=== PATIENT | male | born 1970 | race Caucasian/White ===

== ENCOUNTER 2018-01-25 10:14 | Emergency (ER) | payer SELFPAY ==
[2018-01-25] MEDS ORDERED: HYDROCODONE/APAP 10/325 TAB ONE (11:20)
[2018-01-25] MEDS ORDERED: METHYLPREDNISOLONE 125 MG INJ ONE (11:20)
[2018-01-25] MEDS ORDERED: METHOCARBAMOL 500 MG TAB ONE (11:21)
--- NOTE | 2018-01-25 11:25 | EDPHYS ---
Physician Documentation [facility] Name: Amilcar Perdomo Age: 47 yrs Sex: Male : 1970 Arrival Date: 01/25/2018 Time: 10:20 Bed 12 Private MD: ED Physician Noé More HPI: 01/25 11:18 This 47 yrs old Male presents to ER via Ambulatory with complaints of Back kdr Pain. 11:18 The patient presents with pain that is chronic. The symptoms are located in the low kdr back. Onset: The symptoms/episode began/occurred gradually, 3 day(s) ago. The pain radiates to the right leg. Associated signs and symptoms: The patient has no apparent associated signs or symptoms. 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 Modifying factors: The patient symptoms are alleviated by remaining still, specific position, lying down, the patient symptoms are aggravated by any movement, bending, standing. Severity of symptoms: At their worst the symptoms were moderate, in the emergency department the symptoms are unchanged. The patient has experienced similar episodes in the past, chronically, Just usually not this bad. Has been taking OTC meds without relief. Historical: - Allergies: 10:24 No Known Allergies; hj - Home Meds: 10:24 None [Active]; hj - PMHx: 10:24 None; hj - PSHx: 10:24 Knee surgery; hj - Immunization history:: Adult Immunizations up to date. - Social history:: Smoking status: Patient uses tobacco products, Patient/guardian denies using alcohol. 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 Eyes: Negative for injury, pain, redness, and discharge, ENT: Negative for injury, pain, and discharge, Neck: Negative for injury, pain, and swelling, Cardiovascular: Negative for chest pain, palpitations, and edema, Respiratory: Negative for shortness of breath, cough, wheezing, and pleuritic chest pain, Abdomen/GI: Negative for abdominal pain, nausea, vomiting, diarrhea, and constipation, : Negative for injury, bleeding, discharge, and swelling, MS/Extremity: Negative for injury and deformity, Skin: Negative for injury, rash, and discoloration, Neuro: Negative for headache, weakness, numbness, tingling, and seizure activity. Psych: Negative for depression, anxiety, suicide ideation, homicidal ideation, and hallucinations, Allergy/Immunology: Negative for hives, rash, and allergies, Endocrine: Negative for neck swelling, polydipsia, polyuria, polyphagia, and marked weight changes, Hematologic/Lymphatic: Negative for swollen nodes, abnormal bleeding, and unusual bruising. 11:18 Respiratory: Negative for shortness of breath, cough, wheezing, and pleuritic chest pain. 11:18 Respiratory: 11:18 Back: Positive for decreased range of motion, pain at rest, pain with movement, radiated pain, Negative for injury or acute deformity. Exam: 11:18 Constitutional: This is a well developed, well nourished patient who is awake, alert, kdr and in no acute distress. Head/Face: Normocephalic, atraumatic. Eyes: Pupils equal round and reactive to light, extra-ocular motions intact. Lids and lashes normal. Conjunctiva and sclera are non-icteric and not injected. Cornea within normal limits. Periorbital areas with no swelling, redness, or edema. Neck: Trachea midline, no thyromegaly or masses palpated, and no cervical lymphadenopathy. Supple, full range of motion without nuchal rigidity, or vertebral point tenderness. No Meningismus. Chest/axilla: Normal chest wall appearance and motion. Nontender with no deformity. No lesions are appreciated. Cardiovascular: Regular rate and rhythm with a normal S1 and S2. No gallops, murmurs, or rubs. Normal PMI, no JVD. No pulse deficits. Respiratory: Lungs have equal breath sounds bilaterally, clear to auscultation and percussion. No rales, rhonchi or wheezes noted. No increased work of breathing, no retractions or nasal flaring. Abdomen/GI: Soft, non-tender, with normal bowel sounds. No distension or tympany. No guarding or rebound. No evidence of tenderness throughout. Male : No urologic s/s Skin: Warm, dry with normal turgor. Normal color with no rashes, no lesions, and no evidence of cellulitis. MS/ Extremity: Pulses equal, no cyanosis. Neurovascular intact. Full, normal range of motion. Neuro: Awake and alert, GCS 15, oriented to person, place, time, and situation. Cranial nerves II-XII grossly intact. Motor strength 5/5 in all extremities. Sensory grossly intact. Cerebellar exam normal. Normal gait. Psych: Awake, alert, with orientation to person, place and time. Behavior, mood, and affect are within normal limits. Vital Signs: 10:25 BP 133 / 109; Pulse 104; Resp 18; Temp 98.1(O); Pulse Ox 100% on R/A; Weight 86.18 kg; hj Height 6 ft. 2 in. (187.96 cm); Pain 10/10; 10:25 Body Mass Index 24.39 (86.18 kg, 187.96 cm) hj MDM: 10:29 Patient medically screened. kdr 11:18 Data reviewed: vital signs, nurses notes. Counseling: I had a detailed discussion with kdr the patient and/or guardian regarding: the historical points, exam findings, and any diagnostic results supporting the discharge/admit diagnosis, the need for outpatient follow up. Administered Medications: 11:08 Drug: Weldon 10 mg-325 mg 1 tabs Route: PO; iw 11:35 Follow up: Response: No adverse reaction iw 11:08 Drug: Robaxin 750 mg Route: PO; iw 11:30 Follow up: Response: No adverse reaction iw 11:08 Drug: SOLU-Medrol 125 mg Route: IM; Site: right deltoid; iw 11:40 Follow up: Response: No adverse reaction; Pain is decreased iw Disposition: 01/25/18 11:24 Discharged to Home. Impression: Low back pain. - Condition is Stable. - Discharge Instructions: Musculoskeletal Pain, Back Pain, Adult, [id number]. - Prescriptions for ketorolac 10 mg Oral tablet - take 1 tablet by ORAL route every 4-6 hours As needed not to exceed 40 mg in 24hrs; 16 tablet. Robaxin 500 mg Oral Tablet - take 2 tablet by ORAL route every 6 hours As needed; 40 tablet. Tramadol 50 mg Oral Tablet - take 1 tablet by ORAL route every 8 hours as needed; 12 tablet. - Medication Reconciliation Form, Thank You Letter, Antibiotic Education, Prescription Opioid Use, Work release form form. - Follow up: Private Physician; When: 2 - 3 days; Reason: If symptoms return, Further diagnostic work-up, Recheck today's complaints, Continuance of care, Re-evaluation by your physician. - Problem is an acute exacerbation. - Symptoms have improved. Signatures: Noé More MD MD kdr Moriah Boogie RN RN iw Oscar Broussard RN RN hj
--- NOTE | 2018-01-25 11:25 | ER ---
Nurse's Notes [facility] Name: Amilcar Perdomo Age: 47 yrs Sex: Male : 1970 Arrival Date: 01/25/2018 Time: 10:20 Bed 12 Private MD: Diagnosis: Low back pain Presentation: 01/25 10:22 Presenting complaint: Patient states: i hurt my back last Tuesday, been taking advil hj every 6 hours not helping; hx of back pain; reports tingling numbness on the R leg; stabbing pain on lower back;. Transition of care: patient was not received from another setting of care. Onset of symptoms was January 25, 2018. Care prior to arrival: None. 10:22 Method Of Arrival: Ambulatory hj 10:22 Acuity: ZUHAIR 4 hj Triage Assessment: 10:24 General: Appears in no apparent distress. uncomfortable, Behavior is calm, cooperative, hj appropriate for age. Pain: Complains of pain in left low back and right low back. Musculoskeletal: Circulation, motion, and sensation intact. Range of motion:. Historical: - Allergies: 10:24 No Known Allergies; hj - Home Meds: 10:24 None [Active]; hj - PMHx: 10:24 None; hj - PSHx: 10:24 Knee surgery; hj - Immunization history:: Adult Immunizations up to date. - Social history:: Smoking status: Patient uses tobacco products, Patient/guardian denies using alcohol. Screenin:32 Abuse screen: Denies threats or abuse. Denies injuries from another. Nutritional hj screening: No deficits noted. Tuberculosis screening: No symptoms or risk factors identified. Fall Risk None identified. Assessment: 10:31 General: Appears in no apparent distress. uncomfortable, Behavior is calm, cooperative, hj appropriate for age. Pain: Complains of pain in right low back and left low back. Neuro: Level of Consciousness is awake, alert, obeys commands, Oriented to person, place, time, situation. Cardiovascular: Capillary refill < 3 seconds Patient's skin is warm and dry. Respiratory: Airway is patent Respiratory effort is even, unlabored, Respiratory pattern is regular, symmetrical. GI: No signs and/or symptoms were reported involving the gastrointestinal system. : No signs and/or symptoms were reported regarding the genitourinary system. EENT: No signs and/or symptoms were reported regarding the EENT system. Derm: No signs and/or symptoms reported regarding the dermatologic system. Musculoskeletal: Reports pain in right low back and left low back numbness, tingling on R leg;. 11:19 Reassessment: Patient appears in no apparent distress at this time. Patient and/or iw family updated on plan of care and expected duration. Pain level reassessed. Patient is alert, oriented x 3, equal unlabored respirations, skin warm/dry/pink. pt has been medicated for pain. Vital Signs: 10:25 BP 133 / 109; Pulse 104; Resp 18; Temp 98.1(O); Pulse Ox 100% on R/A; Weight 86.18 kg; hj Height 6 ft. 2 in. (187.96 cm); Pain 10/10; 10:25 Body Mass Index 24.39 (86.18 kg, 187.96 cm) ED Course: 10:20 Patient arrived in ED. mr 10:24 Triage completed. hj 10:24 Arm band placed on left wrist. hj 10:28 Moriah Boogie, RN is Primary Nurse. iw 10:28 Noé More MD is Attending Physician. kdr 10:32 Patient has correct armband on for positive identification. Bed in low position. Call hj light in reach. Adult w/ patient. 11:45 No provider procedures requiring assistance completed. Patient did not have IV access iw during this emergency room visit. Administered Medications: 11:08 Drug: Blakeslee 10 mg-325 mg 1 tabs Route: PO; iw 11:35 Follow up: Response: No adverse reaction iw 11:08 Drug: Robaxin 750 mg Route: PO; iw 11:30 Follow up: Response: No adverse reaction iw 11:08 Drug: SOLU-Medrol 125 mg Route: IM; Site: right deltoid; iw 11:40 Follow up: Response: No adverse reaction; Pain is decreased iw Outcome: 11:24 Discharge ordered by . kdr 11:45 Discharged to home ambulatory, with family. iw 11:45 Condition: good 11:45 Discharge instructions given to patient, family, Instructed on discharge instructions, follow up and referral plans. medication usage, Demonstrated understanding of instructions, follow-up care, medications, Prescriptions given X 3. 11:46 Patient left the ED. iw Signatures: RitNoé lugo MD MD kdr Rivera, Maria mr Moriah Boogie, RN RN iw Oscar Broussard RN RN hj
== END 2018-01-25 11:46 | disposition home or self-care (01) ==
LOC: ER 10:14
DX: M54.5 Low back pain (principal); Z72.0 Tobacco use
CPT/HCPCS: 96372; 99283; J2930